=== PATIENT | male | born 1925 | race Caucasian/White ===

== ENCOUNTER 2017-04-24 14:18 | Inpatient (IN) | payer OTHER ==
[2017-04-24 14:25] VITALS: BMI 28.5
--- NOTE | 2017-04-24 15:02 | PDOC ---
History of Present Illness - General Chief Complaint: Respiratory Stated Complaint: SENT BY PCP Time Seen by Provider: 04/24/17 14:58 History Source: Patient, Family - History of Present Illness Initial Comments: 04/24/17 15:01 CC ? Pneumonia - sent by PCP Majority of HPI obtained by patient's daughter @ bedside Patient is a 89 y.o. male with a PMH of Alzheimer's sent by PCP (Dr. Field) for evaluation of possible pneumonia. Patient's daughter @ bedside notes patient has productive (yellow, non-bloody) cough as well as constant rhinorhea and chest pain on exertion for two weeks duration. Patient's daughter also notes patient c/o increased urinary frequency over the past 2-3 days. Patient's daughter also notes patient recently completed a 7 day course of Clarithomycin for his SiSx however his symptoms persisted. PMD: Dr. iFeld Surgical: Prostate (? resection) Social: denies nicotine, denies alcohol, denies recreational drug use Allergies: Penicillin Past History - Past Medical History Allergies/Adverse Reactions: Allergies Allergy/AdvReac Type Severity Reaction Status Date / Time Penicillins Allergy Hives Verified 04/24/17 14:25 Home Medications: Ambulatory Orders Amlodipine Besylate [Norvasc -] 5 mg PO DAILY #0 tablet 07/31/12 Aspirin [ASA -] 81 mg PO DAILY #0 tab.chew 07/31/12 Memantine HCl [Namenda -] 10 mg PO DAILY 06/12/14 Donepezil HCl [Aricept -] 10 mg PO DAILY 10/14/14 Divalproex Sodium [Depakote] 250 mg PO DAILY 04/24/17 Quetiapine Fumarate [Seroquel] 100 tab PO DAILY 04/24/17 Dementia: Yes (ALZHEIMERS) HTN: Yes - Surgical History Appendectomy: No - Immunization History Immunization Up to Date: Yes - Suicide/Smoking/Psychosocial Hx Smoking Status: No Smoking History: Never smoked Have you smoked in the past 12 months: No Number of Cigarettes Smoked Daily: 0 Cigars Per Day: 0 Hx Alcohol Use: No Drug/Substance Use Hx: No Substance Use Type: None Hx Substance Use Treatment: No *Physical Exam - Vital Signs Last Vital Signs Temp Pulse Resp BP Pulse Ox 98.0 F 102 H 20 168/80 95 04/24/17 14:21 04/24/17 14:21 04/24/17 14:21 04/24/17 14:21 04/24/17 14:21 - Physical Exam General Appearance: Yes: Nourished, Appropriately Dressed Neck: positive: Trachea midline, Supple Respiratory/Chest: positive: Wheezing (Expiratory wheezing B/L in upper, middle and lower lung ontiveros). negative: Chest Tender, Accessory Muscle Use, Crackles Cardiovascular: positive: S1, S2, Tachycardia Gastrointestinal/Abdominal: positive: Soft (No tenderness, rebound, guarding) Integumentary: positive: Dry, Warm Neurologic: positive: Alert ED Treatment Course - LABORATORY CBC & Chemistry Diagram: 04/24/17 15:35 04/24/17 15:40 Medical Decision Making - Medical Decision Making 04/24/17 16:58 Patient is an 89 y.o. male who presents with 2 week h/o productive (yellowish, non-bloody) cough and rhinorrhea. PLAN: 1. CXR 2. CBC, CMP 3. UA Wet read of CXR shows B/L consolidation. As patient is Penicillin allergic, and has h/o recently failed Clarithoymcin started IV Vancomycin and azeotreonam. Contacted Dr. Field, patient admitted under Dr. Sera Carias. *DC/Admit/Observation/Transfer Diagnosis at time of Disposition: Pneumonia - Referrals Referrals: Ricky Field MD [Primary Care Provider] -
--- NOTE | 2017-04-24 15:10 | PDOC ---
Attending Attestation - HPI HPI: 04/24/17 18:09 Patient is a 89 year old male with a significant past medical history of Alzheimer's, HTN who presents to the ED with complaints of chronic coughing that began 2 weeks ago. As per patient's daughter patient began having cough 2 weeks ago with no sign of relief. She states patients cough is productive cough with phlegm production. She reports patient completed 7 day antibiotic prescription with no relief in symptoms. Patients duaghter reports patient experiencing a fever 2 days ago secondary to cough. She states patient experiences SOB with exertion. Denies chills. Denies contact with sick individuals, out of state travel. Denies nausea, vomiting. Denies any other symptoms. Allergies: Penicillin (itch) Social history. Lives at home retired. No smoking. No alcohol. No illicit drugs. Surgical history: Appendectomy PMD: Dr. Field. - Physicial Exam PE: 04/24/17 18:09 GENERAL: Awake, alert, and fully oriented, in no acute distress HEAD: No signs of trauma EYES: PERRLA, EOMI, sclera anicteric, conjunctiva clear ENT: Auricles normal inspection, hearing grossly normal, nares patent, oropharynx clear without exudates. Moist mucosa NECK: Normal ROM, supple, no lymphadenopathy, JVD, or masses LUNGS: +Coarse breath sounds rhonchi bilateral basis. Breath sounds equal, clear to auscultation bilaterally. No wheezes, and no crackles HEART: +Tachycardic Regular and rhythm, normal S1 and S2, no murmurs, rubs or gallops ABDOMEN: Soft, nontender, normoactive bowel sounds. No guarding, no rebound. No masses EXTREMITIES: Normal range of motion, no edema. No clubbing or cyanosis. No cords, erythema, or tenderness NEUROLOGICAL: Cranial nerves II through XII grossly intact. Normal speech, normal gait SKIN: Warm, Dry, normal turgor, no rashes or lesions noted. - Medical Decision Making 04/24/17 18:09 Documentation prepared by Rashaun Hernandez, acting as medical staff coordinator for Yaneli Lang DO. <Rashaun Hernandez - Last Filed: 04/24/17 18:09> - Resident Resident Name: Keyanna Murcia - ED Attending Attestation I have performed the following: I have examined & evaluated the patient, The case was reviewed & discussed with the resident, I agree w/resident's findings & plan, Exceptions are as noted - Medical Decision Making 04/24/17 15:10 I, Dr. Yaneli Lang, DO, attest that this document has been prepared under my direction and personally reviewed by me in its entirety. I further attest, that it accurately reflects all work, treatment, procedures and medical decision -making performed by me. 04/24/17 17:10 a/p: 89yo male with cough/congestion, had 7 days of clarithromycin as oupt. still with fevers as outpt. -concern for pna that failed outpt management -labs -cultures -cxr -discuss with PMD -iv abx -will need admission 04/24/17 17:[address] Field who accept pt to service under Dr. Sera Carias <Yaneli Lang - Last Filed: 04/24/17 18:28> Discharge Disposition <Rashaun Hernandez - Last Filed: 04/24/17 18:09> - Discharge Dispostion Last Admission D/C Date: 03/04/15 Admit: Yes <Yaneli Lang - Last Filed: 04/24/17 18:28> - Diagnosis Pneumonia - Discharge Dispostion Condition at time of disposition: Fair - Referrals Heart Score/ECG Review - ECG Intrepretation Comment:: 04/24/17 18:27 sinus at 87, nl axis, incomplete RBBB, no acute st/t wave findings <Yaneli Lang - Last Filed: 04/24/17 18:28>
[2017-04-24 15:43] LABS: BASOPHIL 1.1 % (0-2.0); EOSINOPHIL 5.2 % (0-4.5); MCH 32.1 pg (25.7-33.7); MCHC 33.8 g/dl (32.0-35.9); MEAN CELL VOLUME 95.2 fl (80-96); MEAN PLT VOLUME 8.4 fl (7.5-11.1); NEUTROPHILS 70.4 % (42.8-82.8); PLATELET COUNT 219 K/MM3 (134-434); RDW 13.6 % (11.9-15.9); WHITE BLOOD COUNT 7.5 K/mm3 (4.0-10.0)
[2017-04-24 16:01] LABS: ALBUMIN 3.3 g/dl (3.4-5.0); ALK PHOS 90 U/L (45-117); ANION GAP 7 (8-16); BILIRUBIN,TOTAL 0.5 mg/dL (0.2-1.0); CALCIUM 8.6 mg/dL (8.5-10.1); CO2 28 mmol/L (21-32); CREATININE 0.9 mg/dL (0.7-1.3); GLUCOSE,RANDOM 145 mg/dL (74-106); SGOT/AST 20 U/L (15-37); SGPT/ALT 28 U/L (12-78); TOT PROT 7.1 g/dl (6.4-8.2)
[2017-04-24] MEDS ORDERED: VANCOMYCIN 1,000 MG in DEXTROSE 5%-WATER - 250 ML IVPB ONE (16:50)
[2017-04-24] MEDS ORDERED: AZTREONAM 2 GM in DEXTROSE 5%-WATER - 100 ML IV ONE (16:51)
[2017-04-24 18:16] LABS: URINE APPEARANCE CLEAR; URINE BILIRUBIN NEGATIVE (NEGATIVE); URINE BLOOD 1+ (NEGATIVE); URINE COLOR LTYELLOW; URINE GLUCOSE (UA) NEGATIVE (NEGATIVE); URINE KETONE NEGATIVE (NEGATIVE); URINE LEUK ESTERASE NEGATIVE (NEGATIVE); URINE NITRITE NEGATIVE (NEGATIVE); URINE PROTEIN NEGATIVE (NEGATIVE); URINE UROBILINOGEN NEGATIVE mg/dL (0.2-1.0)
[2017-04-24] MEDS ORDERED: ACETAMINOPHEN 325 MG TABLET (FP) PO PRN (18:23)
[2017-04-24 18:28] LABS: URINE RBC 5 /hpf (0-3); URINE WBC 1 /hpf (3-5)
[2017-04-24] MEDS ORDERED: SODIUM CHLORIDE 1,000 ML IV SCH (18:30)
[2017-04-25 07:32] LABS: BASOPHIL 1.2 % (0-2.0); EOSINOPHIL 7.6 % (0-4.5); MCHC 33.6 g/dl (32.0-35.9); MEAN CELL VOLUME 95.4 fl (80-96); MEAN PLT VOLUME 8.7 fl (7.5-11.1); NEUTROPHILS 68.1 % (42.8-82.8); PLATELET COUNT 227 K/MM3 (134-434); RDW 13.5 % (11.9-15.9); WHITE BLOOD COUNT 7.6 K/mm3 (4.0-10.0)
[2017-04-25 08:06] LABS: ALBUMIN 3.1 g/dl (3.4-5.0); ALK PHOS 80 U/L (45-117); ANION GAP 6 (8-16); BILIRUBIN,TOTAL 0.7 mg/dL (0.2-1.0); CALCIUM 8.6 mg/dL (8.5-10.1); CO2 29 mmol/L (21-32); CREATININE 0.6 mg/dL (0.7-1.3); GLUCOSE,RANDOM 93 mg/dL (74-106); SGOT/AST 21 U/L (15-37); SGPT/ALT 25 U/L (12-78); TOT PROT 6.6 g/dl (6.4-8.2)
--- NOTE | 2017-04-25 09:42 | HP ---
Admitting History and Physical - Primary Care Physician PCP: Ricky Field - Admission Chief Complaint: SOB and cough with fever History of Present Illness: 89 yrs old man lives at home walks with a cane H/O HTNm Dementia, present with 2 wks h/O Cough expectoration, nasl congestion, expextoration and fever after URTI episode, patoient visited PMD 04/16/2017 , completed Biaxin , symptom orsened so came to clinic and feferred to Ed for evaluation, In ED evaluted and hospitalized for management of CABP failed out patient treatment. History Source: Family Member Limitations to Obtaining History: Dementia - Past Medical History MEDICAL HOUSEKEEPER: Yes: Alzheimer's Cardiovascular: Yes: HTN - Advance Directives Advance Directives: Yes: Health Care Proxy - Smoking History Smoking history: Never smoked Have you smoked in the past 12 months: No Aproximately how many cigarettes per day: 0 - Alcohol/Substance Use Hx Alcohol Use: No - Social History ADL: Family Assistance Home Medications - Allergies Allergies/Adverse Reactions: Allergies Allergy/AdvReac Type Severity Reaction Status Date / Time Penicillins Allergy Hives Verified 04/24/17 14:25 - Home Medications Home Medications: Ambulatory Orders Amlodipine Besylate [Norvasc -] 5 mg PO DAILY #0 tablet 07/31/12 Aspirin [ASA -] 81 mg PO DAILY #0 tab.chew 07/31/12 Memantine HCl [Namenda -] 10 mg PO DAILY 06/12/14 Donepezil HCl [Aricept -] 10 mg PO DAILY 10/14/14 Divalproex Sodium [Depakote] 250 mg PO DAILY 04/24/17 Quetiapine Fumarate [Seroquel] 100 tab PO DAILY 04/24/17 Family Disease History - Family Disease History Family Disease History: Respiratory: Grandparent, Father, Mother, Brother, Sister Review of Systems - Review of Systems Constitutional: reports: Fever, Lethargy Cardiovascular: reports: Shortness of Breath Respiratory: reports: Cough, SOB, Wheezing Gastrointestinal: reports: No Symptoms, Nausea Musculoskeletal: reports: No Symptoms Integumentary: reports: No Symptoms Neurological: reports: Change in LOC Endocrine: reports: No Symptoms Hematology/Lymphatic: reports: No Symptoms Psychiatric: reports: No Symptoms Physical Examination Vital Signs: Vital Signs Temperature 98.8 F 04/25/17 06:00 Pulse Rate 83 04/25/17 06:00 Respiratory Rate 18 04/25/17 06:00 Blood Pressure 141/69 04/25/17 06:00 O2 Sat by Pulse Oximetry (%) 93 L 04/24/17 22:00 Constitutional: Yes: Calm Eyes: Yes: Conjunctiva Clear, EOM Intact HENT: Yes: Atraumatic, Nasal Congestion, Rhinnorhea Neck: Yes: Supple, Trachea Midline Cardiovascular: Yes: Regular Rate and Rhythm, S1, S3. No: JVD, Murmur, Rub Respiratory: Yes: Regular, Rales Gastrointestinal: Yes: Normal Bowel Sounds, Soft Musculoskeletal: Yes: WNL. No: Back Pain Extremities: Yes: WNL. No: Calf Tenderness Edema: No Peripheral Pulses WNL: Yes Peripheral Pulses: Left Doralis Pedis: 1+, Right Dorsalis Pedis: 1+ Neurological: Yes: WNL, Lethargy, Unsteady Gait, Weakness ...Motor Strength: WNL, LUE, LLE, RUE, RLE Labs: CBC, BMP 04/25/17 06:05 04/25/17 06:05 Imaging - Results X-ray: Report Reviewed (B/L Intersttial pneumonia) EKG: Report Reviewed (sinus at 87, nl axis, incomplete RBBB, no acute st/t wave findings) Problem List - Problems (1) Pneumonia Assessment/Plan: Patient present with fever, cough, copious sputum, considering old age and no improvment with Out patient treatment, admited for IV bax as complete Biaxine no indication for Atypical coverage, will F/U respiratory viral pane;, sputum culture cont Aztrenom as improving no strong indication for no indication for MRSA Coverage will discuss with ID.. Code(s): J18.9 - PNEUMONIA, UNSPECIFIED ORGANISM (2) Bronchospasm Assessment/Plan: DYe to RTI cont Duneb add Q eliane inhaler Code(s): J98.01 - ACUTE BRONCHOSPASM (3) Cough Assessment/Plan: Due to RTI encourage hydration. Code(s): R05 - COUGH (4) Dementia Assessment/Plan: Chronic cont all home medications. Code(s): F03.90 - UNSPECIFIED DEMENTIA WITHOUT BEHAVIORAL DISTURBANCE Qualifiers: Dementia type: Alzheimer's disease
[2017-04-25] MEDS ORDERED: ALBUTEROL SO4 2.5/IPRATROPIUM 0.5 INH SOL 3 ML VIAL.NEB. NEB PRN (09:51)
[2017-04-25] MEDS ORDERED: QUEtiapine FUMARATE 50 MG TABLET ONE (09:54)
[2017-04-25] MEDS ORDERED: PT OWN MED DRAWER 7, Y5N ONE ×3 (09:55→18:59)
[2017-04-25] MEDS: ENOXAPARIN NA (PORCINE) 40 MG/0.4 ML DISP.SYRIN SQ SCH (10:20)
[2017-04-25] MEDS: DONEPEZIL HCL 5 MG TABLET (FP) PO SCH (10:21)
[2017-04-25] MEDS: ASPIRIN 81 MG CHEWABLE TABLETS PO SCH (10:21)
[2017-04-25] MEDS: QUEtiapine FUMARATE 100 MG TABLET (FP) PO SCH (10:22)
[2017-04-25] MEDS: amLODIPine BESYLATE 5 MG TABLET (FP) PO SCH (10:22)
[2017-04-25] MEDS: SODIUM CHLORIDE 1,000 ML IV SCH (11:00)
[2017-04-25] MEDS ORDERED: FLU VACCINE QUAD 60 MCG/0.5 ML (MDV 17-18) IM ONE (14:00)
--- NOTE | 2017-04-25 14:10 | EKG ---
Test Reason : Blood Pressure : / mmHG Vent. Rate : 087 BPM Atrial Rate : 087 BPM P-R Int : 178 ms QRS Dur : 092 ms QT Int : 372 ms P-R-T Axes : 040 -15 033 degrees QTc Int : 447 ms SINUS RHYTHM WITH PREMATURE ATRIAL COMPLEXES INCOMPLETE RIGHT BUNDLE BRANCH BLOCK BORDERLINE ECG WHEN COMPARED WITH ECG OF 02-MAR-2015 06:17, PREMATURE ATRIAL COMPLEXES ARE NOW PRESENT Confirmed by SUNIL EAST, JACKY ([id number]) on 04/25/2017 2:10:34 PM Referred By: Confirmed By:JACKY BARBER MD
[2017-04-25] MEDS: DIVALPROEX SODIUM 250 MG TABLET E.C. (FP) PO SCH (14:17)
--- NOTE | 2017-04-25 14:47 | CON.ID ---
Consult Consult Specialty:: infectious diseases Referred by:: Reason for Consultation:: pneumonia - History of Present Illness History of Present Illness: 89 yrs old man with H/O HTNm Dementia, with 2 wks of Cough with expectoration, nasal congestion, expectoration and fever According tot he history patient saw his pmd and was given biaxin which he completed patient inspite of treatment continued to ahve symptoms and was admitted with cabp currently patient is stable and looks like the cough which he came for and had yesterday is improving patients daughter in room who is giving history - History Source History Provided By: Family Member Limitations to Obtaining History: Language Barrier - Past Medical History OXYACETYLENE BURNER: Yes: Alzheimer's Cardio/Vascular: Yes: HTN - Alcohol/Substance Use Hx Alcohol Use: No - Smoking History Smoking history: Never smoked Have you smoked in the past 12 months: No Aproximately how many cigarettes per day: 0 - Social History ADL: Family Assistance Home Medications - Allergies Allergies/Adverse Reactions: Allergies Allergy/AdvReac Type Severity Reaction Status Date / Time Penicillins Allergy Hives Verified 04/24/17 14:25 - Home Medications Home Medications: Ambulatory Orders Amlodipine Besylate [Norvasc -] 5 mg PO DAILY #0 tablet 07/31/12 Aspirin [ASA -] 81 mg PO DAILY #0 tab.chew 07/31/12 Memantine HCl [Namenda -] 10 mg PO DAILY 06/12/14 Donepezil HCl [Aricept -] 10 mg PO DAILY 10/14/14 Divalproex Sodium [Depakote] 250 mg PO DAILY 04/24/17 Quetiapine Fumarate [Seroquel] 100 tab PO DAILY 04/24/17 Family Disease History - Family Disease History Family Disease History: Respiratory: Grandparent, Father, Mother, Brother, Sister Review of Systems - Review of Systems Constitutional: reports: Fever Eyes: reports: No Symptoms HENT: reports: No Symptoms Neck: reports: No Symptoms Cardiovascular: reports: No Symptoms Respiratory: reports: Cough, SOB, Wheezing Gastrointestinal: reports: No Symptoms Genitourinary: reports: No Symptoms Musculoskeletal: reports: No Symptoms Integumentary: reports: No Symptoms Neurological: reports: No Symptoms Endocrine: reports: No Symptoms Hematology/Lymphatic: reports: No Symptoms Psychiatric: reports: No Symptoms Physical Exam Vital Signs: Vital Signs Temperature 98.2 F 04/25/17 10:00 Pulse Rate 88 04/25/17 10:00 Respiratory Rate 18 04/25/17 10:00 Blood Pressure 157/78 04/25/17 10:00 O2 Sat by Pulse Oximetry (%) 93 L 04/25/17 09:00 Constitutional: Yes: Well Nourished, Obese Eyes: Yes: Conjunctiva Clear Neck: Yes: Supple, Trachea Midline Cardiovascular: Yes: Regular Rate and Rhythm Respiratory: Yes: On Nasal O2, Poor Air Entry, Rhonchi, Wheezes Gastrointestinal: Yes: Normal Bowel Sounds, Soft Musculoskeletal: Yes: WNL Extremities: Yes: WNL Neurological: Yes: Alert, Oriented Psychiatric: Yes: Alert, Oriented Labs: CBC, BMP 04/25/17 06:05 04/25/17 06:05 Imaging - Results Chest X-ray: Report Reviewed, Image Reviewed Assessment/Plan patient who failed outpatient treatment now feels that he is improving Problem List - Problems (1) Pneumonia Code(s): J18.9 - PNEUMONIA, UNSPECIFIED ORGANISM (2) Bronchospasm Code(s): J98.01 - ACUTE BRONCHOSPASM (3) Cough Code(s): R05 - COUGH (4) Dementia Code(s): F03.90 - UNSPECIFIED DEMENTIA WITHOUT BEHAVIORAL DISTURBANCE Qualifiers: Dementia type: Alzheimer's disease plan i agree with the [id number] on aztreonam if the patient does not improve might add clinda for now we will continue current mgmt rest as per primary incentive spring
[2017-04-25] MEDS: predniSONE 20 MG TABLET (UD) PO SCH (15:42)
[2017-04-25] MEDS: FLUTICASONE/SALMETEROL 100 MCG/50 MCG DISKUS IH SCH ×2 (16:06→21:49)
[2017-04-25] MEDS: AZTREONAM 1 GM in DEXTROSE 5%-WATER - 50 ML IVPB SCH ×2 (16:07→19:47)
[2017-04-26] MEDS: AZTREONAM 1 GM in DEXTROSE 5%-WATER - 50 ML IVPB SCH ×4 (00:14→10:57)
[2017-04-26] MEDS: SODIUM CHLORIDE 1,000 ML IV SCH ×2 (05:53→10:00)
[2017-04-26 09:44] VITALS: BP 144/88; PULSE 63; TEMP 98.8
[2017-04-26] MEDS ORDERED: QUEtiapine FUMARATE 50 MG TABLET ONE (10:53)
[2017-04-26] MEDS ORDERED: PT OWN MED DRAWER 7, Y5N ONE (10:54)
[2017-04-26] MEDS: ENOXAPARIN NA (PORCINE) 40 MG/0.4 ML DISP.SYRIN SQ SCH (11:13)
[2017-04-26] MEDS: FLUTICASONE/SALMETEROL 100 MCG/50 MCG DISKUS IH SCH (11:14)
[2017-04-26] MEDS: amLODIPine BESYLATE 5 MG TABLET (FP) PO SCH (11:15)
[2017-04-26] MEDS: predniSONE 20 MG TABLET (UD) PO SCH (11:15)
[2017-04-26] MEDS: ASPIRIN 81 MG CHEWABLE TABLETS PO SCH (11:15)
[2017-04-26] MEDS: DONEPEZIL HCL 5 MG TABLET (FP) PO SCH (11:15)
[2017-04-26] MEDS: DIVALPROEX SODIUM 250 MG TABLET E.C. (FP) PO SCH (11:16)
[2017-04-26] MEDS: QUEtiapine FUMARATE 100 MG TABLET (FP) PO SCH (11:16)
--- NOTE | 2017-04-26 13:03 | DS ---
Physical Examination Vital Signs: Vital Signs Temperature 98.8 F 04/26/17 09:42 Pulse Rate 63 04/26/17 09:42 Respiratory Rate 15 04/26/17 09:42 Blood Pressure 144/88 04/26/17 09:42 O2 Sat by Pulse Oximetry (%) 94 L 04/25/17 22:00 Constitutional: Yes: No Distress HENT: Yes: WNL, Atraumatic. No: Nasal Congestion Neck: Yes: WNL, Supple Cardiovascular: Yes: WNL, Regular Rate and Rhythm, S1, S2. No: JVD, Murmur, Rub Respiratory: Yes: Regular, CTA Bilaterally Gastrointestinal: Yes: WNL, Normal Bowel Sounds, Soft Musculoskeletal: Yes: WNL. No: Back Pain, Joint Stiffness Extremities: Yes: WNL. No: Calf Tenderness Edema: No Peripheral Pulses: Left Doralis Pedis: 1+, Right Dorsalis Pedis: 1+ Neurological: Yes: WNL, Alert, Oriented ...Motor Strength: WNL, LUE, LLE, RUE, RLE Labs: CBC, BMP 04/25/17 06:05 04/25/17 06:05 Discharge Summary Reason For Visit: PNEUMONIA Current Active Problems Dementia (Acute) Pneumonia (Acute) Reactive Airways Disease Condition: Fair - Instructions Referrals: Ricky Field MD [Primary Care Provider] - Disposition: HOME - Home Medications Comprehensive Discharge Medication List: Ambulatory Orders Amlodipine Besylate [Norvasc -] 5 mg PO DAILY #0 tablet 07/31/12 Aspirin [ASA -] 81 mg PO DAILY #0 tab.chew 07/31/12 Memantine HCl [Namenda -] 10 mg PO DAILY 06/12/14 Donepezil HCl [Aricept -] 10 mg PO DAILY 10/14/14 Divalproex Sodium [Depakote] 250 mg PO DAILY 04/24/17 Quetiapine Fumarate [Seroquel] 100 tab PO DAILY 04/24/17 Levofloxacin [Levaquin -] 500 mg PO DAILY 4 Days 04/26/17 Prednisone [Deltasone -] 20 mg PO DAILY 5 Days 04/26/17 Salmeterol/Fluticasone [Advair 100Mcg/50Mcg -] 1 puff IH BID #1 inhaler
[2017-04-27] MEDS ORDERED: LEVOFLOXACIN 500 MG TABLET (FP) PO SCH (10:00)
== END 2017-04-26 14:08 | disposition home or self-care (01) | DRG 195 ==
LOC: JER 14:18 → JERBED 17:46 → J5S 20:16
PROVIDERS: ADMIT Internal Medicine; ATTEND Internal Medicine
DX: J18.9 Pneumonia, unspecified organism (principal); G30.9 Alzheimer's disease, unspecified; F02.80 Dementia in other diseases classified elsewhere, unspecified severity, without behavioral disturbance, psychotic disturbance, mood disturbance, and anxiety; Z88.0 Allergy status to penicillin; I45.10 Unspecified right bundle-branch block
CPT/HCPCS: 36415; 71020-TC; 80053; 80164; 81003; 81015; 83036; 83735; 85025; 87040; 87070; 87205; 87633; 87899; 90688; 93005; 93010; 93306-TC; 99282-25; G0008